=== PATIENT | male | born 1995 | race Two or more races ===

== ENCOUNTER 2018-04-23 15:58 | Emergency (ER) | payer BC ==
[~2018-04-23] VITALS: Ht 188 cm; Wt 78.6 kg
[2018-04-23 16:06] VITALS: BP 119/76
[2018-04-23] MEDS ORDERED: BICILLIN-LA 2,400,000 UNITS/4 ML IM ONE (16:30)
== END 2018-04-23 17:24 | disposition home or self-care (01) ==
LOC: ED 16:54
DX: A53.9 Syphilis, unspecified (principal)
CPT/HCPCS: 96372; 99283; J0561